=== PATIENT | female | born 1955 | race Caucasian/White ===

== ENCOUNTER → 2017-10-07 | Outpatient (CLI) | payer BC ==
--- NOTE | 2017-10-08 11:17 | Diagnostic Imaging Report ---
Bilateral screening mammogram 2D views with implant views and tomosynthesis The current study was also evaluated with a Computer Aided Detection (CAD) system. Indication: Screening. No current complaints stated on the questionnaire. COMPARISON: 08/31/2016. Findings: The breasts are composed of scattered fibroglandular densities. There are bilateral symmetric the implant seen without significant change. Allowing for technique and positional differences, no suspicious change is seen. IMPRESSION: No significant change. ACR BI-RADS Category 2: Benign findings. Result letter will be mailed to the patient. Note: At least 10% of breast cancer is not imaged by mammography. Dictated by: Dictated on workstation # [id number]
== END ==
LOC: RAD 13:36
PROVIDERS: ATTEND Internal Medicine
DX: Z12.31 Encounter for screening mammogram for malignant neoplasm of breast (principal)
CPT/HCPCS: 77067

== ENCOUNTER 2022-05-19 09:59 | Emergency (ER) | payer MEDICARE, OTHER ==
[~2022-05-19] VITALS: Ht 162 cm; Wt 70.0 kg
--- NOTE | 2022-05-19 10:18 | ED Chest Pain ---
General Chief Complaint: Chest Pain Stated Complaint: CHEST PAIN Source: patient, EMS Exam Limitations: no limitations History of Present Illness Date Seen by Provider: May 19, 2022 Time Seen by Provider: 10:04 Initial Comments Patient is a 66-year-old who presents to the emergency department today with a chief complaint of right-sided chest pain radiating into her right axilla. She states she has had this off and on over the course of the last 2 or 3 days. She states she chalked it up to her normal "angina". She is a patient of Dr. Mccullough at [facility]. She states she had coronary angiography about 5 years ago with no stents or angioplasty. She reports no blockages found at that time. She does have nitroglycerin at home for use but does not take it because it is "old". She states she started having symptoms on Wednesday. Her blood pressure was quite high in the 180s systolic. She has not taken anything for the intermittent discomfort. She states she does feel a little nauseous, a little short of breath with the chest discomfort. She has had multiple prior surgeries including appendectomy, cholecystectomy. She does not take medications for blood pressure, diabetes or blood thinners. No recent illnesses or COVID concerns. She is fully vaccinated last booster was approximately 2 weeks ago. No fevers, chills, cough or congestion. At the time of evaluation after being transported by EMS she states her pain is completely relieved. She was given 324 mg of aspirin at [facility] prior to arrival. She denies black or bloody stools, dysuria, urgency or frequency. No leg swe lling. All other review of systems reviewed and negative except as stated. 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 NTG SL JACK FRAME TENDER: No Associated Symptoms: nausea/vomiting (nausea without vomiting), shortness of breath Allergies and Home Medications Allergies Coded Allergies: [id number] Reductase Inhibitor (Verified Allergy, Unknown, Rash, 05/19/22) Sulfa (Sulfonamide Antibiotics) (Verified Allergy, Unknown, Rash, 05/19/22) methyclothiazide (Verified Allergy, Unknown, Rash, 05/19/22) Patient Home Medication List Home Medication List Reviewed: Yes Review of Systems Review of Systems Constitutional: see HPI EENTM: No Symptoms Reported Respiratory: Shortness of Air Cardiovascular: Chest Pain Gastrointestinal: Nausea Genitourinary: No Symptoms Reported Musculoskeletal: no symptoms reported Skin: no symptoms reported Psychiatric/Neurological: No Symptoms Reported All Other Systems Reviewed Negative Unless Noted: Yes Physical Exam Vital Signs Vital Signs - First Documented 05/19/22 10:03 Temp 36.5 Pulse 57 Resp 16 B/P (MAP) 163/77 (105) Capillary Refill : Height, Weight, BMI Height: '" Weight: lbs. oz. 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 Norm as Tested Skin: Normal Color, Warm/Dry Progress/Results/Core Measures Results/Orders Lab Results Laboratory Tests Test 05/19/22 10:22 05/19/22 13:17 Range/Units White Blood Count 5.8 4.3-11.0 10^3/uL Red Blood Count 3.99 3.80-5.11 10^6/uL Hemoglobin 13.5 11.5-16.0 g/dL Hematocrit 38 35-52 % Mean Corpuscular Volume 96 80-99 fL Mean Corpuscular Hemoglobin 34 25-34 pg Mean Corpuscular Hemoglobin Concent 35 32-36 g/dL Red Cell Distribution Width 12.1 10.0-14.5 % Platelet Count 177 130-400 10^3/uL Mean Platelet Volume 11.2 9.0-12.2 fL Immature Granulocyte % (Auto) 0 % Neutrophils (%) (Auto) 50 42-75 % Lymphocytes (%) (Auto) 31 12-44 % Monocytes (%) (Auto) 8 0-12 % Eosinophils (%) (Auto) 9 0-10 % Basophils (%) (Auto) 1 0-10 % Neutrophils # (Auto) 2.9 1.8-7.8 10^3/uL Lymphocytes # (Auto) 1.8 1.0-4.0 10^3/uL Monocytes # (Auto) 0.5 0.0-1.0 10^3/uL Eosinophils # (Auto) 0.5 H 0.0-0.3 10^3/uL Basophils # (Auto) 0.1 0.0-0.1 10^3/uL Immature Granulocyte # (Auto) 0.0 0.0-0.1 10^3/uL Prothrombin Time 14.3 12.2-14.7 SEC INR Comment 1.1 0.8-1.4 Activated Partial Thromboplast Time 34 24-35 SEC Sodium Level 139 135-145 MMOL/L Potassium Level 4.5 3.6-5.0 MMOL/L Chloride Level 108 H 98-107 MMOL/L Carbon Dioxide Level 21 21-32 MMOL/L Anion Gap 10 5-14 MMOL/L Blood Urea Nitrogen 13 7-18 MG/DL Creatinine 0.77 0.60-1.30 MG/DL Estimat Glomerular Filtration Rate 86 BUN/Creatinine Ratio 17 Glucose Level 90 70-105 MG/DL Calcium Level 9.5 8.5-10.1 MG/DL Corrected Calcium 9.5 8.5-10.1 MG/DL Magnesium Level 2.0 1.6-2.4 MG/DL Total Bilirubin 0.6 0.1-1.0 MG/DL Aspartate Amino Transf (AST/SGOT) 42 H 5-34 U/L Alanine Aminotransferase (ALT/SGPT) 38 0-55 U/L Alkaline Phosphatase 49 40-136 U/L Myoglobin 37.2 10.0-92.0 NG/ML Troponin I < 0.028 < 0.028 <0.028 NG/ML Total Protein 7.9 6.4-8.2 GM/DL Albumin 4.0 3.2-4.5 GM/DL My Orders Orders - TAMAR SANDS MD Cbc With Automated Diff (05/19/22 10:13) Magnesium (05/19/22 10:13) Chest 1 View, Ap/Pa Only (05/19/22 10:13) Ekg Tracing (05/19/22 10:13) Comprehensive Metabolic Panel (05/19/22 10:13) Myoglobin Serum (05/19/22 10:13) Protime With Inr (05/19/22 10:13) Partial Thromboplastin Time (05/19/22 10:13) O2 (05/19/22 10:13) Monitor-Rhythm Ecg Trace Only (05/19/22 10:13) Lipid Panel (05/20/22 06:00) Ed Iv/Invasive Line Start (05/19/22 10:13) Troponin I Freddie (05/19/22 10:13) Ketorolac Injection (Toradol Injection) (05/19/22 12:15) Troponin I Freddie (05/19/22 13:04) Medications Given in ED Current Medications Medications Dose Ordered Sig/Sana Route Start Time Stop Time Status Last Admin Dose Admin Ketorolac Tromethamine 15 mg ONCE ONCE IVP 05/19/22 12:15 05/19/22 12:16 DC 05/19/22 12:10 15 MG Vital Signs/I&O 05/19/22 10:03 Temp 36.5 Pulse 57 Resp 16 B/P (MAP) 163/77 (105) Progress Progress Note : Time: 14:25 Progress Note Patient reassessed after labs, repeat troponin. She is feeling good at this time. She had developed a mild headache which has been resolved with Toradol. 2 troponins are negative. Her vital signs remained stable. 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 She really is overall low risk for acute coronary syndrome. The only blood pressure medication she states she takes is amlodipine 2.5 mg daily for "angina" not necessarily for hypertension. She is not a smoker. She is not a diabetic. No significant history of coronary artery disease in family members. My concern is the exertional component of the chest pain over the last 4 days. Associated with shortness of breath, nausea and mild diaphoresis. She is comfortable with discharge at this time. I was able to call Dr. Mccullough's office and arrange an outpatient appointment for her at 11:30 AM on June 01. Return precautions have been provided. Her daughter is at the bedside and also understands return precautions. All questions are sought and answered. Patient is stable for discharge Initial ECG Impression Date: May 19, 2022 Initial ECG Impression Time: 10:35 Initial ECG Rate: 53 Initial ECG Rhythm: S.Hollis Initial ECG Intervals: Normal Initial ECG Intervals MS 141 QRS 88 QTC 435 Comment No ectopy, sinus bradycardia, poor R wave progression over the precordium. No significant ST-T wave change/elevation/depression. Diagnostic Imaging Diagonstic Imaging: Xray Plain Films/CT/US/NM/MRI: chest Comments [facility]. [place], [place] NAME: JEANETH APONTE [facility] REC#: [id number] PT STATUS: REG ER : 1955 PHYSICIAN: TAMAR SANDS MD ADMIT DATE: 05/19/22/ER Draft Date of Exam:05/19/22 CHEST 1 VIEW, AP/PA ONLY INDICATION: Chest pain Frontal chest obtained at 1033 a.m. Heart and mediastinal silhouette are normal in appearance. The lungs are clear. There is no pneumothorax or pleural fluid. IMPRESSION: Negative chest. Dictated on workstation # [id number] Dict: 05/19/22 1052 Trans: 05/19/22 1057 LUÍS [id number] Interpreted by: BRITTNY ASHLEY MD Electronically signed by: Departure Impression Primary Impression: Chest pain Qualified Codes: R07.9 - Chest pain, unspecified Disposition: 01 HOME, SELF-CARE Condition: Improved Departure-Patient Inst. Decision time for Depature: 14:29 Referrals: KERI BROWNLEE DO (PCP) Primary Care Physician MENDEZ BROWNLEE DNP (Family) Primary Care Physician Patient Instructions: Chest Pain (DC) Add. Discharge Instructions: Take a baby aspirin daily until you follow-up with Dr. Mccullough. I have scheduled your appointment for June 01 at 11:30 AM at his office. If you should develop more chest pain that concerns you, radiates to the shoulders, arm/neck or back, with nausea, shortness of breath or sweating please come back to the emergency room for reevaluation. Continue all of your other medications as previously prescribed by your primary care physician. TAMAR SANDS MD May 19, 2022 10:17
[2022-05-19 10:35] LABS: BASOPHILS # (AUTO) 0.1 10^3/uL (0.0-0.1); BASOPHILS % (AUTO) 1 % (0-10); EOSINOPHILS # (AUTO) 0.5 10^3/uL (0.0-0.3); EOSINOPHILS % (AUTO) 9 % (0-10); HEMATOCRIT 38 % (35-52); HEMOGLOBIN 13.5 g/dL (11.5-16.0); LYMPHOCYTES # (AUTO) 1.8 10^3/uL (1.0-4.0); LYMPHOCYTES % (AUTO) 31 % (12-44); MEAN CORPUSCULAR HEMOGLOBIN 34 pg (25-34); MEAN CORPUSCULAR HGB CONC 35 g/dL (32-36); MEAN CORPUSCULAR VOLUME 96 fL (80-99); MEAN PLATELET VOLUME 11.2 fL (9.0-12.2); MONOCYTES # (AUTO) 0.5 10^3/uL (0.0-1.0); MONOCYTES % (AUTO) 8 % (0-12); NEUTROPHILS # (AUTO) 2.9 10^3/uL (1.8-7.8); NEUTROPHILS % (AUTO) 50 % (42-75); PLATELET COUNT 177 10^3/uL (130-400); WHITE BLOOD COUNT 5.8 10^3/uL (4.3-11.0)
[2022-05-19 10:48] LABS: INR 1.1 (0.8-1.4); PROTHROMBIN TIME PATIENT 14.3 SEC (12.2-14.7)
[2022-05-19 10:57] LABS: BILIRUBIN,TOTAL 0.6 MG/DL (0.1-1.0); CALCIUM 9.5 MG/DL (8.5-10.1); CREATININE SERUM 0.77 MG/DL (0.60-1.30); POTASSIUM 4.5 MMOL/L (3.6-5.0); TOTAL PROTEIN 7.9 GM/DL (6.4-8.2)
--- NOTE | 2022-05-19 10:57 | Diagnostic Imaging Report ---
INDICATION: Chest pain Frontal chest obtained at 1033 a.m. Heart and mediastinal silhouette are normal in appearance. The lungs are clear. There is no pneumothorax or pleural fluid. IMPRESSION: Negative chest. Dictated by: Dictated on workstation # [id number]
[2022-05-19] MEDS ORDERED: KETOROLAC 30 MG/ML VIAL IVP ONE (12:15)
[2022-05-19 14:38] VITALS: BP 139/64
== END 2022-05-19 14:39 | disposition home or self-care (01) ==
LOC: EDUNIT# 09:59 → ER 10:01
DX: R07.89 Other chest pain (principal); R06.02 Shortness of breath; R61 Generalized hyperhidrosis; R11.0 Nausea; Z79.899 Other long term (current) drug therapy
CPT/HCPCS: 36415; 71045; 80053; 83735; 83874; 84484; 85025; 85610; 85730; 93005; 93041